=== PATIENT | male | born 1970 | race Caucasian/White ===

== ENCOUNTER 2017-01-25 20:14 | Emergency (ER) | payer MEDICAID ==
[2017-01-25 20:30] VITALS: BP 111/89; PULSE 106; RESP 16; TEMP 98.8; O2SAT 95
[2017-01-25] MEDS ORDERED: PENICILLIN VK 500 MG TAB PO ONE (20:54)
[2017-01-25] MEDS ORDERED: IBUPROFEN 800 MG TAB PO ONE (20:55)
[2017-01-25] MEDS ORDERED: OXYCODONE/APAP 5/325MG PREPACK#4 BTL TAKEHOME ONE (20:55)
[2017-01-25] MEDS ORDERED: IBUPROFEN 200 MG TAB PO ONE (21:14)
[2017-01-25] MEDS ORDERED: IBUPROFEN 600 MG TAB PO ONE (21:14)
--- NOTE | 2017-01-25 23:04 | UCPHY ---
H & P Time Seen by Provider: 01/25/17 20:46 Patient Type: Established HPI/ROS: This patient complains of severe dental pain to the right lower premolar region extending to his jaw. This week he had a root canal to the adjacent to tooth and he has been taking Amoxil and Percocet. He ran out of Percocet has increasing pain. He has an appointment to see his dentist this coming Friday, 2 days from now. He did reach the dentist by phone encouraged him to come in for check. ROS: No fevers. No overt facial swelling. No vomiting. 5 point ROS is otherwise negative. Past Medical/Surgical History: Old mandible fracture from boxing. Previous dental issues. He denies any history of addiction. Smoking Status: Never smoked Physical Exam: Physical Exam Vital signs are normal. General: No acute distress HEENT: Atraumatic. Intraoral exam: There is a cath in the right lower premolar with tenderness to percussion-exquisite. No gingival fluctuance is noted. No significant soft tissue swelling adjacent to this. No submental swelling. No clinical evidence of Vijay's angina. Ears: Right external canal and TM clear left external canal and TM clear Eyes: Pupils equal and react to light. Extraocular motions are intact. Lungs: No respiratory distress. Cardiac: Brisk capillary refill is intact throughout. Skin: No rash or pallor. Neuro: Alert and oriented cranial nerves 2-12 grossly intact Initial differential diagnosis: Periapical abscess, dental infection, Constitutional: Initial Vital Signs Temperature (C) 37.1 C 01/25/17 20:24 Heart Rate 106 H 01/25/17 20:24 Respiratory Rate 16 01/25/17 20:24 Blood Pressure 111/89 H 01/25/17 20:24 O2 Sat (%) 95 01/25/17 20:24 O2 Delivery Mode Room Air Allergies/Adverse Reactions: No Known Allergies Allergy (Verified 01/25/17 20:23) Home Medications: Medication Instructions Recorded oxyCODONE/APAP 5/325 [Percocet 1 - 2 tab PO Q6H PRN #20 tab 09/03/15 5/325] Citalopram 01/25/17 HYDROmorphone HCL [Dilaudid 2 mg 2 - 4 mg PO Q4 PRN #15 tab 01/25/17 (*)] Penicillin V Potassium [Penicillin 500 mg PO TID #30 01/25/17 VK] Medical Decision Making ED Course/Re-evaluation: I counseled patient regarding the importance of taking both and inset along with another analgesic for pain control We will switch him to penicillin-1st post given here. Ibuprofen administered here.ow up with his dentist on Friday - Data Points Medications Given: Discontinued Medications Ibuprofen (Motrin) 800 mg PO EDNOW ONE Stop: 01/25/17 20:56 Last Admin: 01/25/17 21:18 Dose: 800 mg Oxycodone/Acetaminophen (Percocet 5/325mg Prepack#4) 1 btl TAKEHOME EDNOW ONE Stop: 01/25/17 20:56 Last Admin: 01/25/17 21:18 Dose: 1 btl Penicillin V Potassium (Pen Vk) 500 mg PO EDNOW ONE PRN Reason: Protocol Stop: 01/25/17 20:55 Last Admin: 01/25/17 21:18 Dose: 500 mg Departure - Departure Disposition: Home, Routine, Self-Care Clinical Impression: Pain due to dental caries Clinical Impression: (Ruled Out): Pain, dental Condition: Good Instructions: Dental Caries (ED) Additional Instructions: Diagnosis: Dental pain due to dental caries Plan: Stop Amoxil. Start penicillin Ibuprofen and Percocet for tonight, on Dilaudid for the next day or 2 until he see a dentist on Friday. Go the emergency department for any significant worsening despite the treatment plan. Referrals: Manuel Rincon DO [Primary Care Provider] - As per Instructions Prescriptions: HYDROmorphone HCL [Dilaudid 2 mg (*)] 2 - 4 mg PO Q4 PRN #15 tab PRN Reason: dental pain Penicillin V Potassium [Penicillin VK] 500 mg PO TID #30 - PQRS PQRS Measurement: NA
== END 2017-01-25 21:22 | disposition home or self-care (01) ==
LOC: CED 20:14
DX: K02.9 Dental caries, unspecified (principal); K08.89 Other specified disorders of teeth and supporting structures
CPT/HCPCS: 99214-PO; G0463-PO

== ENCOUNTER 2017-07-03 09:21 | Emergency (ER) | payer MEDICAID ==
[2017-07-03 09:29] VITALS: PULSE 114; RESP 20; TEMP 98.2
[2017-07-03] MEDS ORDERED: ONDANSETRON DISINTEGRATING 4 MG TAB PO ONE (09:49)
[2017-07-03] MEDS ORDERED: LORazepam 1 MG TAB PO ONE (09:49)
--- NOTE | 2017-07-03 09:49 | EDPHY ---
H & P Stated Complaint: Oxy withdraw-diarrhea, vomiting; last use yesterday am Time Seen by Provider: 07/03/17 09:40 HPI/ROS: Chief Complaint: Opioid withdrawal HPI: 47-year-old male on chronic OxyContin and oxycodone for back pain states that there was a mixup at the pharmacy and they did not have the OxyContin. He has been taking oxycodone he says to compensate in thinks he mass counted and ran out of his medications yesterday. Patient is complaining of nausea, restless legs and abdominal cramping. He tried to get into his primary care physician who is unavailable until Friday. Denies any new numbness or weakness. No fall injuries. No chest pain or shortness of breath. ROS: 10 point Review of Systems is negative except as noted in the HPI. PMH: Chronic back pain Social History: No smoking, no alcohol, no recreational drug use Family History: non-contributory Physical Exam: Gen: Awake, Alert, anxious appearing, restless HEENT: Nose: no rhinorrhea Eyes: PERRLA, EOMI Mouth: Moist mucosa Neck: Supple, no JVD Chest: nontender, lungs clear to auscultation Heart: S1, S2 normal, no murmur Abd: Soft, non-tender, no guarding Back: no CVA tenderness, no midline tenderness Ext: no edema, non-tender Skin: no rash Neuro: CN II-XII intact, Sensation grossly intact, Strength 5/5 in bilateral upper and lower extremities - Personal History Current Tetanus/Diphtheria Vaccine: Yes Tetanus Vaccine Date: unsure - Medical/Surgical History Hx Asthma: No Hx Chronic Respiratory Disease: No Hx Diabetes: No Hx Cardiac Disease: No Hx Renal Disease: No Hx Cirrhosis: No Hx Alcoholism: No Hx HIV/AIDS: No Hx Splenectomy or Spleen Trauma: No Other PMH: back fusion, broken jaw, fx wrist, fx nose,anxiety - Social History Smoking Status: Never smoked Constitutional: Initial Vital Signs Temperature (C) 36.8 C 07/03/17 09:25 Heart Rate 114 H 07/03/17 09:25 Respiratory Rate 20 07/03/17 09:25 Blood Pressure 124/81 H 07/03/17 09:25 O2 Sat (%) 93 07/03/17 09:25 O2 Delivery Mode Room Air Allergies/Adverse Reactions: No Known Allergies Allergy (Verified 07/03/17 09:28) Home Medications: Medication Instructions Recorded Citalopram 07/03/17 Oxycodone HCl 07/03/17 Oxycontin 07/03/17 Medical Decision Making ED Course/Re-evaluation: We have discussed the patient with primary care physician office. His physician is unavailable but they do have an appointment with Dr. Beckham at 2: 30 a.m. this afternoon. Patient has been given ondansetron and Ativan here for his withdrawal symptoms. Given he has no appointment with primary care for 0.5 hours he will be discharged to follow up with them for evaluation of his medication requirements. He has not had any vomiting here. No seizure activity. He has an otherwise benign physical examination. - Data Points Medications Given: Discontinued Medications Lorazepam (Ativan) 2 mg PO EDNOW ONE Stop: 07/03/17 09:50 Last Admin: 07/03/17 09:59 Dose: 2 mg Ondansetron HCl (Zofran Odt) 4 mg PO EDNOW ONE Stop: 07/03/17 09:50 Last Admin: 07/03/17 09:59 Dose: 4 mg Departure - Departure Disposition: Home, Routine, Self-Care Clinical Impression: Opioid withdrawal Condition: Good Instructions: Opioid Withdrawal (ED) Additional Instructions: You have an appointment with Dr. Beckham at 2:30 a.m. this afternoon in this building. Please make sure to attend that appointment. Referrals: Manuel Rincon DO [Primary Care Provider] - As per Instructions Rubio Beckham DO [Doctor of Osteopathy] - As per Instructions
[2017-07-03 10:33] VITALS: BP 114/85; O2SAT 92
== END 2017-07-03 10:28 | disposition home or self-care (01) ==
LOC: CED 09:21
DX: F11.23 Opioid dependence with withdrawal (principal)

== ENCOUNTER 2017-09-22 03:24 | Emergency (ER) | payer MEDICAID ==
--- NOTE | 2017-09-22 03:31 | CPEKG ---
Heart Rate: 96 RR Interval: 625 P-R Interval: 156 QRSD Interval: 84 QT Interval: 364 QTC Interval: 460 P [place]: 48 QRS [place]: 20 T Wave [place]: 21 EKG Severity - NORMAL ECG - EKG Impression: SINUS RHYTHM Electronically Signed By: Martinez Alvarez 23-Sep-2017 15:43:24
[2017-09-22 03:40] VITALS: TEMP 98.1
[2017-09-22] MEDS ORDERED: ASPIRIN 81 MG CHEWABLE TAB PO ONE (03:40)
[2017-09-22] MEDS ORDERED: LORazepam 0.5 MG TAB PO ONE (03:40)
[2017-09-22] MEDS ORDERED: LORazepam 2 MG/ML INJ ONE (03:44)
--- NOTE | 2017-09-22 03:48 | EDPHY ---
H & P Stated Complaint: L Chest Pain 1 hour, L arm numbness Time Seen by Provider: 09/22/17 03:35 HPI/ROS: CHIEF COMPLAINT: pleuritic pain to the left, lower lateral chest HISTORY OF PRESENT ILLNESS: this is a 47-year-old male who had an uneventful day on September 21, yesterday. The only thing he does recall is have an episode of diarrhea at 5:00 p.m. which he did not investigate as to color. He has had no abdominal cramping abdominal pain since. He was at home dozing. Somewhat fitful. But then he woke with a startle approximately 1 hour ago at 2:30 a.m. with a severe intense pain to the left lower chest, just below the breast. It is stated that location and persisted although was moderate it is quite a bit less. At it was a 10/10 now he would described as a moderate pain. It continues to bother him when he twists and bends and when he takes a deep breath. As best he can recall he does not recall any specific injury or overuse. He did not try any medications to management nor any aspirin. He did not take his HS dose of Oxycontin. He has never had pain like this before. He does not recall any straining last few days or overuse such as in the gym nasal him. However, he is also complaining of tingling into the hand as well as into the left foot and the foot is cramping up. This all started also at the same time as of above. Old chart is reviewed. Initially when interviewed he noted that he had never had no surgeries the come to find out he has had the knee as well as the back fusion. Further, he did not elaborate about his pain medications until I had reviewed his old chart and back to check with him about this. At that time he explain as follows. He was seen in June of 2017 here at this ER and was noted to have at narcotic withdrawal in the setting of for running out of his usual him OxyContin and Oxy IR medications. At this time he states he is on his medications, has 4 days left of both the OxyContin 30 bid and the Oxy IR 10 four times daily as scheduled to see his provider regarding his back management later today, FridaySeptember 22. Cardiac Risk Factors: DM: No HTN: No High Chol: No Smoking: No Family History: unknown , states he is really not very close to family Obesity: No SLE type illenss: No HIV: No PE/DVT risk factors Prior DVT/PE: yes - had a right calf DVT at the time of his knee surgery some 6 years ago. He completed a 1 year course of anticoagulation. However, no known history of protein C protein S and cardiolipin a or factor 5 Leiden Immobilization: No Splint/Cast: No Surgery, recently: No Family history of hypercoaguable syndrome: unknown, states he is really not very close to family Unilateral leg swelling: unknown Obesity: No Aortic aneurysm risk factors: Hypertension No Known Aortic aneurysm No Bicuspid aortic Valve No Aortic Valve disease No Family Hx of aortic disease unknown , though none is known per se-does not keep in touch with his family Polycystic Kidney Disease No Collagen vascular disease No Aortic Regurg Murmur No Aortic instrumentation recent - No Blunt trauma, recent - No REVIEW OF SYSTEMS: Constitutional: No fever, no chills. He did break out into a sweat, though felt warm at home. Eyes: No discharge ENT: No sore throat. Cardiovascular: No chest pain, no palpitations. Respiratory: No cough, shortness of breath, or wheezing. He complains of pain over the left chest when he takes a breath. Gastrointestinal: No nausea vomiting, though did have the 1 episode of diarrhea approximately 10 hours ago. Character of this diarrhea is unknown as he did not inspect. No abdominal pain. Genitourinary: No hematuria or frequency. Musculoskeletal: No back pain. Skin: No rashes. Neurological: No headache. 10 point ROS otherwise negative Source: Patient Exam Limitations: Other (Odd affect. He is not speaking though not in his head yes and no to the staff. And he contradicts his prior records as in states that he has not had no surgery but then later we talked about his knee surgery and has spinal fusion.) - Personal History Current Tetanus/Diphtheria Vaccine: Unsure Current Tetanus Diphtheria and Acellular Pertussis (TDAP): Unsure Tetanus Vaccine Date: unsure - Medical/Surgical History Hx Asthma: No Hx Chronic Respiratory Disease: No Hx Diabetes: No Hx Cardiac Disease: No Hx Renal Disease: No Hx Cirrhosis: No Hx Alcoholism: No Hx HIV/AIDS: No Hx Splenectomy or Spleen Trauma: No Other PMH: back fusion, broken jaw, fx wrist, fx nose,anxiety, opiod withdrawl. Failed back syndrome - Family History Significant Family History: No pertinent family hx - Social History Smoking Status: Never smoked Alcohol Use: None Drug Use: None, Other (On a chronic pain management) - Physical Exam Exam: General Appearance: Alert, winces in pain periodically with his breathing, hyperventilating. Afebrile. Normal phonation. No respiratory distress. Eyes: Pupils equal and round no pallor or injection. No icterus ENT, Mouth: Mucous membranes moist. Pharynx without erythema or exudate. TM Clear. Neck: No adenopathy. Supple. No JVD. Trachea in midline. Respiratory: There are no retractions, lungs are clear to auscultation, though he is splinting. Chest wall: Nontender to palpation. No crepitus. Cardiovascular: Regular rate and rhythm, without murmur. Abdomen: Soft and nontender, no masses, bowel sounds normal. Neurological: Ox3. No motor weakness. Sensation intact. Gait nl. Skin: Warm and dry, no rashes. Musculoskeletal: No joint swelling. Extremities: No edema. Homans sign negative. No cords. Palpation of the left LE gives him an odd sensation he cannot explain Psychiatric: Flat affect, though reasonable eye contact. Patient is oriented X 3. Fidgety. Constitutional: Initial Vital Signs Temperature (C) 36.7 C 09/22/17 03:35 Heart Rate 89 09/22/17 03:35 Respiratory Rate 16 09/22/17 03:35 Blood Pressure 150/93 H 09/22/17 03:35 O2 Sat (%) 95 09/22/17 03:35 O2 Delivery Mode Room Air O2 (L/minute) 1 Allergies/Adverse Reactions: No Known Allergies Allergy (Verified 09/22/17 03:38) Home Medications: Medication Instructions Recorded Citalopram 09/22/17 Ibuprofen [Motrin (*)] 800 mg PO TID #15 tab 09/22/17 Omeprazole 40 mg PO DAILY #10 capsule. 09/22/17 Oxycodone HCl 10 mg Q6-8PRN PRN 09/22/17 Oxycontin 30 BID 09/22/17 Medical Decision Making - Diagnostics EKG Interpretation: Ekg interpreted by me contemporaneously - See seperate report in [facility]. Summary: Normal sinus rhythm. No ischemic changes. Normal ST-T segments. No Q-waves. Imaging Results: CT scan as interpreted by the radiologist and discussed with radiologist and reviewed by me: CT scan of the chest with IV contrast CT angiogram. No signs of PE. Films reviewed by me as well on the [facility]: Discussed imaging studies w/ director call center sales Radiologist ED Course/Re-evaluation: Given his prior history of DVT I would construed him to be moderate risk thus he was ordered for CTA from the initial evaluation. Management of symptoms was truly difficult given his background history of chronic pain management. Shortly thereafter, we titrated up Ativan to 1.5 mg in the 1st 15 minutes as well as fentanyl 100 mcg. Laboratory analysis revealed the following: Normal CBC Normal basic, though mildly elevated anion gap of 18 Normal renal function Negative D-dimer Troponin is pending as it is sent out to the [facility] [employer] I was able to do a lengthy review of the [facility] database. Unfortunately, this man has had several occurrences in the last year running out of his medications before there to be refilled. In particular this happened over the course of several days in October, late December, then again when seen here on July 03. Of note whereas he has been seen here on July 03 in the morning, referred to his PCP, he later appeared to go to that day to the [facility] [place] for continued pain - at that visit there was additional information given to the staff at that hospital about a fall in the shower some several days prior to the . Noting the variable story: as we to had somewhat of a variable story here, see above CT scan as noted above is negative for PE. This was reviewed with the patient. Again, I reviewed with him pain management. Vis-a-vis I was worried that he might be purposely taking less drugs than usual due to a need to ration what was left toward the end of his current monthly cycle. However he states that is not the case. Perhaps the diarrhea is supportive of that. Nonetheless, taking him at face value, that would not explain the pleuritic pain to the left chest, though the leg symptoms would fit from a constellation of abberrant pain pathways response and his history of restless leg syndrome. Certainly has response to pain would be somewhat colored due to his altered pain perception. Pleurisy is a reasonable hope for him in the hope that his 6 hour troponin would be negative which is pending at 8:30 a.m. he is aware of the need for this particular purpose of testing. In the meantime will initiate ketorolac 30 mg IV. Further I reviewed with him ibuprofen 800 three times daily along with his usual pain management medicines for his pain management along with prilosec. 0555: Ultimately, he noted that he must go home in order to get his daughter on the bus. He is emphatic that he will not drive her to school. Likewise, he is directed not to drive for the next 24 hours to the medications that he has received here. I have explained to him the need to come return for a 6 hour troponin at 8:30 a.m. or shortly thereafter. He suggests that he will be coming back. Of note, toward the end of his visit, after I met with him at 5: 55 a.m., here he started bargaining with the nurse about staying, so as to get extra pain medication. This would be imprudent due to his relative hypotension at 100/60. He decided to leave, AMA. Warned. Though he had left, the 3-1/2 hour troponin level was negative. I explained to him that this was substandard and that he needs to come back at 8:30 a.m. for further evaluation as well as laboratory assessment. He understood. Case reported off to the day physician who might be seeing him later. Differential Diagnosis: Differential diagnosis includes but is not limited to the following: ACS, myocardial infarction, pneumothorax, pleurisy, pulmonary embolus, CHF, Pneumonia, bronchospasm, Asthma, anxiety, muscle strain, narcotic withdrawal - Data Points Laboratory Results: Laboratory Results 09/22/17 03:20 09/22/17 03:20 Medications Given: Discontinued Medications Aspirin (Aspirin) 324 mg PO EDNOW ONE Stop: 09/22/17 03:41 Last Admin: 09/22/17 03:47 Dose: 324 mg Fentanyl (Sublimaze) 100 mcg IVP EDNOW ONE Stop: 09/22/17 04:04 Last Admin: 09/22/17 04:06 Dose: 100 mcg Ketorolac Tromethamine (Toradol) 30 mg IVP EDNOW ONE Stop: 09/22/17 05:25 Last Admin: 09/22/17 05:32 Dose: 30 mg Lorazepam (Ativan) 0.5 mg PO EDNOW ONE Stop: 09/22/17 03:41 Last Admin: 09/22/17 03:59 Dose: Not Given Lorazepam (Ativan Injection) 0.5 mg IVP EDNOW ONE Stop: 09/22/17 03:47 Last Admin: 09/22/17 03:57 Dose: 0.5 mg Lorazepam (Ativan Injection) 0.5 mg IVP EDNOW ONE Stop: 09/22/17 04:03 Last Admin: 09/22/17 04:07 Dose: 0.5 mg Oxycodone HCl (Oxycodone Ir) 10 mg PO EDNOW ONE Stop: 09/22/17 05:28 Last Admin: 09/22/17 05:32 Dose: 10 mg Departure - Departure Disposition: Against Medical Advice Clinical Impression: Pleurisy Chest pain Qualifiers: Chest pain type: chest pain on breathing Qualified Code(s): R07.1 - Chest pain on breathing; R07.81 - Pleurodynia Condition: Good Instructions: Pleurisy (ED) Additional Instructions: As we need to draw the next blood test at 830, please return then so we can be more certain that it is not your heart. Continue usual medications He received an injection of an anti-inflammatory in the same class is ibuprofen. Continue the ibuprofen for the rest of the week. See prescription In order to protect your stomach, take Prilosec 40 mg daily for the next 10 days No driving for 24 hours Ibuprofen 100 mg 3 times daily with food, for 5 days. See her family physician in 2-3 days Referrals: Patient,NotPresent [Primary Care Provider] - 2-3 days without fail Prescriptions: Ibuprofen [Motrin (*)] 800 mg PO TID #15 tab Omeprazole 40 mg PO DAILY #10 capsule.
[2017-09-22 03:49] LABS: % IMMATURE GRANULYOCYTES 0.4 % (0.0-1.1); ABSOLUTE IMMATURE GRANULOCYTES 0.03 10^3/uL (0.00-0.10); ADD DIFF? NO; ADD MORPH? NO; ADD SCAN? NO; ATYPICAL LYMPHOCYTE FLAG 0 (0-99); FRAGMENT RBC FLAG 0 (0-99); HEMATOCRIT 43.3 % (40.0-51.0); HEMOGLOBIN 15.4 g/dL (13.7-17.5); LEFT SHIFT FLG 0 (0-99); LIPEMIA HEMOLYSIS FLAG 90 (0-99); MEAN CELL HEMOGLOBIN 31.2 pg (27.9-34.1); MEAN CELL HEMOGLOBIN CONCENTR. 35.6 g/dL (32.4-36.7); MEAN CELL VOLUME 87.8 fL (81.5-99.8); MEAN PLATELET VOLUME 10.8 fL (8.7-11.7); PLATELET CLUMPS FLAG 0 (0-99); PLATELET COUNT 204 10^3/uL (150-400); RED BLOOD CELL COUNT 4.93 10^6/uL (4.40-6.38); RED CELL DISTRIBUTION WIDTH 12.2 % (11.5-15.2)
[2017-09-22] MEDS: LORazepam 2 MG/ML INJ IVP ONE ×2 (03:53→03:57)
[2017-09-22 03:55] LABS: ANION GAP 18 mEq/L (8-16); CALCIUM 9.6 mg/dL (8.5-10.4); CARBON DIOXIDE 25 mEq/l (22-31); CHLORIDE 101 mEq/L (97-110); CREATININE 0.8 mg/dL (0.7-1.3); GLOMERULAR FILTRATION RATE > 60; GLUCOSE 111 mg/dL (70-100); POTASSIUM 4.1 mEq/L (3.5-5.2); SODIUM 144 mEq/L (134-144)
[2017-09-22] MEDS ORDERED: LORazepam 2 MG/ML INJ IVP ONE (04:02)
[2017-09-22] MEDS ORDERED: fentaNYL 100 MCG/2 ML INJ IVP ONE (04:03)
[2017-09-22] MEDS ORDERED: IOPAMIDOL (ISOVUE 370) 100 ML BTL IV ONE (04:19)
[2017-09-22 04:51] LABS: TROPONIN I < 0.012 ng/mL (0.000-0.034)
[2017-09-22 05:13] VITALS: BP 100/68; PULSE 80; RESP 16; O2SAT 93
[2017-09-22] MEDS ORDERED: KETOROLAC 30 MG/1 ML SDV IVP ONE (05:24)
[2017-09-22] MEDS ORDERED: oxyCODONE IR 5 MG TAB PO ONE (05:27)
[2017-09-22] MEDS ORDERED: oxyCODONE IR 5 MG TAB ONE (05:35)
== END 2017-09-22 06:53 | disposition left against medical advice (07) ==
LOC: CED 03:24
DX: R09.1 Pleurisy (principal); R07.1 Chest pain on breathing
CPT/HCPCS: 71275-PO; 80048-PO; 82947-QW; 84484-PO; 85025-PO; 85378-PO; 96374; J1885; J2060; J3010; Q9967

== ENCOUNTER 2017-10-17 19:51 | Emergency (ER) | payer MEDICAID ==
[2017-10-17 19:55] VITALS: TEMP 98.2
[2017-10-17] MEDS ORDERED: OXYCODONE/APAP 5/325 TAB PO ONE (20:09)
--- NOTE | 2017-10-17 20:23 | EDPHY ---
General Narrative: CHIEF COMPLAINT: Left calf pain, possible DVT HISTORY OF PRESENT ILLNESS: Patient complains of left calf pain with concern for DVT. He says yesterday morning he has sudden onset of pain in the left calf. It is isolated to only the calf. Severe with movement of the ankle ambulation. Constant duration. Minimal at rest. Some tingling in the foot but no numbness. No low back pain at this time although he does have chronic back pain. No trauma or injury. Does have a history of a right lower extremity DVT in the calf several years ago. Feels the same to him. Does drive a truck for a living, and he has had several long trips recently. No chest pain of any kind. No shortness of breath. No abdominal urinary complaints. No redness or warmth. No other associated complaints or modifying factors. REVIEW OF SYSTEMS: Ten systems reviewed and are negative unless otherwise noted in the HPI PCP: Dr. Rincon SPECIALISTS: Pain management PAST MEDICAL HISTORY: Chronic back pain, reflux PAST SURGICAL HISTORY: Low back laminectomy and fusion SOCIAL HISTORY: Nonsmoker. No alcohol or drug use. Works as a [employer] truck driver FAMILY HISTORY: Noncontributory EXAMINATION General Appearance: Alert, no distress Head: normocephalic, atraumatic Eyes: Pupils equal and round, no conjunctival pallor or injection ENT, Mouth: Mucous membranes moist Neck: Normal inspection, supple, non-tender Respiratory: No retractions or distress. Cardiovascular: Regular rate. Symmetric DP and PT pulses 2+. Gastrointestinal: Abdomen is soft and nontender Neurological: A&O, nonfocal, symmetric station to the top of both feet. Skin: Warm and dry, no rash. No erythema or cellulitis. No petechiae purpura Extremities: Significant tenderness to palpation of the left calf. The left calf is more firm than the right. There is pain with passive dorsiflexion of the left ankle. No palpable cord. No warmth to the left calf. There is no pain to palpation of the left thigh popliteal fossa. Neurovascular intact distal to this. Psychiatric: Mood and affect normal DIFFERENTIAL DIAGNOSES: Including but not limited to DVT, strain, sprain, hematoma, muscle spasm, dehydration MDM: 8:09 p.m. LLE pain with suspected DVT. No chest pain. No shortness of breath. Vital signs within normal limits, and he is in no acute distress. Stat ultrasound ordered. Laboratory studies ordered. Pain medication ordered. He is resting comfortably. 8:48 p.m. CBC negative. PT PTT negative. Chemistry pending. Ultrasound is currently being performed. 9:00 p.m. Ultrasound results still pending. Chemistries negative. CK is very minimally elevated, less than 400 9:45 p.m. Patient re-evaluated. He is resting in no acute distress with mild calf pain. Ultrasound results are still pending. 9:52 p.m. Notified by radiologist Dr. Esposito. Ultrasound of the left lower extremity reveals no evidence of thrombus. 10:05 p.m. I have re-evaluated the patient. We discussed the negative ultrasound findings. We discussed the negative laboratory studies. We discussed that I suspect this is a muscle spasm. No evidence of rhabdomyolysis by a laboratory study. No intractable pain at rest. I will treat him with Flexeril, Toradol here. I will discharge him home with further Flexeril and recommend over-the- counter anti-inflammatories and warm compresses. Would like him to contact his primary care physician for outpatient follow-up. I would like him to return here for worsening pain or intractable pain. He is comfortable this plan and discharged home stable condition with his and daughter. SUPERVISION: Patient was independently examined, but I discussed the case with my secondary supervising physician Dr. Hernandez - History Smoking Status: Never smoked - Objective Vital Signs: Initial Vital Signs Temperature (C) 98.2 F 10/17/17 19:54 Heart Rate 97 10/17/17 19:54 Respiratory Rate 16 10/17/17 19:54 Blood Pressure 134/79 H 10/17/17 19:54 O2 Sat (%) 93 10/17/17 19:54 O2 Delivery Mode Room Air Allergies/Adverse Reactions: No Known Allergies Allergy (Verified 09/22/17 03:38) Home Medications: Medication Instructions Recorded Citalopram 09/22/17 Ibuprofen [Motrin (*)] 800 mg PO TID #15 tab 09/22/17 Omeprazole 40 mg PO DAILY #10 capsule. 09/22/17 Oxycodone HCl 10 mg Q6-8PRN PRN 09/22/17 Oxycontin 30 BID 09/22/17 Cyclobenzaprine [Flexeril 10 MG 10 mg PO TID PRN #15 tab 10/17/17 (*)] Laboratory Results: Laboratory Results 10/17/17 20:21 10/17/17 20:21 10/17/17 10/17/17 10/17/17 20:21 20:21 20:21 WBC 8.46 10^3/uL 10^3/uL (3.80-9.50) RBC 4.54 10^6/uL 10^6/uL (4.40-6.38) Hgb 14.3 g/dL g/dL (13.7-17.5) Hct 39.8 % L % (40.0-51.0) MCV 87.7 fL fL (81.5-99.8) MCH 31.5 pg pg (27.9-34.1) MCHC 35.9 g/dL g/dL (32.4-36.7) RDW 12.1 % % (11.5-15.2) Plt Count 223 10^3/uL 10^3/uL (150-400) MPV 10.3 fL fL (8.7-11.7) Neut % (Auto) 56.8 % % (39.3-74.2) Lymph % (Auto) 31.9 % % (15.0-45.0) Moore % (Auto) 7.3 % % (4.5-13.0) Eos % (Auto) 3.0 % % (0.6-7.6) Baso % (Auto) 0.6 % % (0.3-1.7) Nucleat RBC Rel Count 0.0 % % (0.0-0.2) Absolute Neuts (auto) 4.81 10^3/uL 10^3/uL (1.70-6.50) Absolute Lymphs (auto) 2.70 10^3/uL 10^3/uL (1.00-3.00) Absolute Monos (auto) 0.62 10^3/uL 10^3/uL (0.30-0.80) Absolute Eos (auto) 0.25 10^3/uL 10^3/uL (0.03-0.40) Absolute Basos (auto) 0.05 10^3/uL 10^3/uL (0.02-0.10) Absolute Nucleated RBC 0.00 10^3/uL 10^3/uL (0-0.01) Immature Gran % 0.4 % % (0.0-1.1) Immature Gran # 0.03 10^3/uL 10^3/uL (0.00-0.10) PT 13.2 SEC SEC (12.0-15.0) INR 0.98 (0.83-1.16) APTT 27.2 SEC SEC (23.0-38.0) Sodium 140 mEq/L mEq/L (134-144) Potassium 3.8 mEq/L mEq/L (3.5-5.2) Chloride 104 mEq/L mEq/L (97-110) Carbon Dioxide 26 mEq/l mEq/l (22-31) Anion Gap 10 mEq/L mEq/L (8-16) BUN 13 mg/dL mg/dL (7-23) Creatinine 0.8 mg/dL mg/dL (0.7-1.3) Estimated GFR > 60 Glucose 100 mg/dL mg/dL (70-100) Calcium 9.3 mg/dL mg/dL (8.5-10.4) Creatine Kinase 369 IU/L H IU/L (0-224) CK-MB (CK-2) Fraction 1.63 ng/mL ng/mL (0.00-3.19) CK-MB (CK-2) % 0.4 % % (0.0-4.0) Creatine Kinase Interp NEGATIVE (NEGATIVE) Departure - Departure Disposition: Home, Routine, Self-Care Clinical Impression: Pain of left calf, Muscle cramp Condition: Good Instructions: Leg Cramps (ED), Muscle Cramp (ED), Cyclobenzaprine (By mouth) Additional Instructions: 1. [id number] anti-inflammatories as discussed. Do not take your 1st dose until at least 4:30 a.m. due to the Toradol administered here. 2. Flexeril as prescribed as needed 3. Contact your primary care physician for outpatient follow-up 4. ED precautions as discussed Referrals: Manuel Rincon DO [Doctor of Osteopathy] - As per Instructions Prescriptions: Cyclobenzaprine [Flexeril 10 MG (*)] 10 mg PO TID PRN #15 tab PRN Reason: Spasms
[2017-10-17 20:29] LABS: PLATELET COUNT 223 10^3/uL (150-400)
[2017-10-17 20:41] LABS: INR 0.98 (0.83-1.16); PROTIME(PATIENT) 13.2 SEC (12.0-15.0)
[2017-10-17 20:57] LABS: CREATINE KINASE 369 IU/L (0-224)
[2017-10-17] MEDS ORDERED: KETOROLAC 30 MG/1 ML SDV IVP ONE (22:10)
[2017-10-17] MEDS ORDERED: CYCLOBENZAPRINE 10 MG TAB PO ONE (22:10)
[2017-10-17] MEDS ORDERED: CYCLOBENZAPRINE 10MG PREPACK#3 BTL TAKEHOME ONE (22:10)
[2017-10-17 22:24] VITALS: BP 116/80; PULSE 80; RESP 18; O2SAT 94
== END 2017-10-17 22:23 | disposition home or self-care (01) ==
DX: M79.605 Pain in left leg (principal); R25.2 Cramp and spasm
CPT/HCPCS: 96374; J1885